=== PATIENT | male | born 1955 | race Caucasian/White ===

== ENCOUNTER → 2019-11-03 | Outpatient (CLI) | payer OTHER | LOC: HYPER 12:46 | DX: I83.228 Varicose veins of left lower extremity with both ulcer of other part of lower extremity and inflammation (principal); L97.821 Non-pressure chronic ulcer of other part of left lower leg limited to breakdown of skin; I83.222 Varicose veins of left lower extremity with both ulcer of calf and inflammation; L97.221 Non-pressure chronic ulcer of left calf limited to breakdown of skin; I83.218 Varicose veins of right lower extremity with both ulcer of other part of lower extremity and inflammation; L97.811 Non-pressure chronic ulcer of other part of right lower leg limited to breakdown of skin; L84 Corns and callosities; I89.0 Lymphedema, not elsewhere classified; I50.32 Chronic diastolic (congestive) heart failure; I48.0 Paroxysmal atrial fibrillation; J45.20 Mild intermittent asthma, uncomplicated; K76.6 Portal hypertension; K21.9 Gastro-esophageal reflux disease without esophagitis; G47.00 Insomnia, unspecified; R91.1 Solitary pulmonary nodule; M17.0 Bilateral primary osteoarthritis of knee; Z91.81 History of falling; Z90.49 Acquired absence of other specified parts of digestive tract; Z95.818 Presence of other cardiac implants and grafts; Z86.14 Personal history of Methicillin resistant Staphylococcus aureus infection ==

== ENCOUNTER → 2019-12-16 | Outpatient (CLI) | payer OTHER | LOC: HYPER 13:26 | DX: I83.011 Varicose veins of right lower extremity with ulcer of thigh (principal); L97.111 Non-pressure chronic ulcer of right thigh limited to breakdown of skin; I83.12 Varicose veins of left lower extremity with inflammation; I89.0 Lymphedema, not elsewhere classified; I48.0 Paroxysmal atrial fibrillation; I11.0 Hypertensive heart disease with heart failure; I50.32 Chronic diastolic (congestive) heart failure; M17.0 Bilateral primary osteoarthritis of knee; J45.20 Mild intermittent asthma, uncomplicated; G47.33 Obstructive sleep apnea (adult) (pediatric); Z86.14 Personal history of Methicillin resistant Staphylococcus aureus infection; Z90.49 Acquired absence of other specified parts of digestive tract ==

== ENCOUNTER → 2020-01-20 | Outpatient (CLI) | payer OTHER | LOC: HYPER 10:42 | DX: I83.011 Varicose veins of right lower extremity with ulcer of thigh (principal); L97.111 Non-pressure chronic ulcer of right thigh limited to breakdown of skin; L03.116 Cellulitis of left lower limb; L03.115 Cellulitis of right lower limb; I89.0 Lymphedema, not elsewhere classified; E66.01 Morbid (severe) obesity due to excess calories; R60.0 Localized edema; I50.32 Chronic diastolic (congestive) heart failure; I48.0 Paroxysmal atrial fibrillation; G47.33 Obstructive sleep apnea (adult) (pediatric); J45.20 Mild intermittent asthma, uncomplicated; K21.9 Gastro-esophageal reflux disease without esophagitis; K76.6 Portal hypertension; M17.10 Unilateral primary osteoarthritis, unspecified knee; Z68.42 Body mass index [BMI] 45.0-49.9, adult ==

== ENCOUNTER → 2020-02-03 | Outpatient (CLI) | payer OTHER | LOC: HYPER 09:59 | DX: L03.116 Cellulitis of left lower limb (principal); L03.115 Cellulitis of right lower limb; I83.011 Varicose veins of right lower extremity with ulcer of thigh; L97.101 Non-pressure chronic ulcer of unspecified thigh limited to breakdown of skin; I83.12 Varicose veins of left lower extremity with inflammation; L84 Corns and callosities; I89.0 Lymphedema, not elsewhere classified; I11.0 Hypertensive heart disease with heart failure; I50.32 Chronic diastolic (congestive) heart failure; I48.0 Paroxysmal atrial fibrillation; R60.0 Localized edema; E66.01 Morbid (severe) obesity due to excess calories; G47.33 Obstructive sleep apnea (adult) (pediatric); J45.20 Mild intermittent asthma, uncomplicated; K21.9 Gastro-esophageal reflux disease without esophagitis; M17.0 Bilateral primary osteoarthritis of knee; Z68.42 Body mass index [BMI] 45.0-49.9, adult ==

== ENCOUNTER → 2020-02-09 | Outpatient (CLI) | payer OTHER | LOC: HYPER 13:00 | DX: I83.011 Varicose veins of right lower extremity with ulcer of thigh (principal); L97.101 Non-pressure chronic ulcer of unspecified thigh limited to breakdown of skin; L03.115 Cellulitis of right lower limb; L84 Corns and callosities; I83.12 Varicose veins of left lower extremity with inflammation; I89.0 Lymphedema, not elsewhere classified; I48.0 Paroxysmal atrial fibrillation; I50.32 Chronic diastolic (congestive) heart failure; G47.33 Obstructive sleep apnea (adult) (pediatric); R60.0 Localized edema; J45.20 Mild intermittent asthma, uncomplicated; M17.0 Bilateral primary osteoarthritis of knee ==

== ENCOUNTER → 2020-04-15 | Outpatient (CLI) | payer OTHER | LOC: HYPER 13:56 | PROVIDERS: ATTEND Emergency Medicine | DX: I89.0 Lymphedema, not elsewhere classified (principal); I83.12 Varicose veins of left lower extremity with inflammation; I83.011 Varicose veins of right lower extremity with ulcer of thigh; L97.111 Non-pressure chronic ulcer of right thigh limited to breakdown of skin; R60.0 Localized edema; L30.9 Dermatitis, unspecified; R21 Rash and other nonspecific skin eruption; E66.01 Morbid (severe) obesity due to excess calories; I48.0 Paroxysmal atrial fibrillation; I50.32 Chronic diastolic (congestive) heart failure; G47.33 Obstructive sleep apnea (adult) (pediatric); J45.20 Mild intermittent asthma, uncomplicated; K21.9 Gastro-esophageal reflux disease without esophagitis; M17.0 Bilateral primary osteoarthritis of knee; Z95.818 Presence of other cardiac implants and grafts; Z68.42 Body mass index [BMI] 45.0-49.9, adult ==

== ENCOUNTER → 2020-05-27 | Outpatient (CLI) | payer OTHER | LOC: HYPER 12:46 | PROVIDERS: ATTEND Emergency Medicine | DX: I87.333 Chronic venous hypertension (idiopathic) with ulcer and inflammation of bilateral lower extremity (principal); L97.811 Non-pressure chronic ulcer of other part of right lower leg limited to breakdown of skin; L97.821 Non-pressure chronic ulcer of other part of left lower leg limited to breakdown of skin; R21 Rash and other nonspecific skin eruption; L30.9 Dermatitis, unspecified; I89.0 Lymphedema, not elsewhere classified; R60.0 Localized edema; E66.01 Morbid (severe) obesity due to excess calories; G47.33 Obstructive sleep apnea (adult) (pediatric); J45.20 Mild intermittent asthma, uncomplicated; I48.0 Paroxysmal atrial fibrillation; I11.0 Hypertensive heart disease with heart failure; I50.32 Chronic diastolic (congestive) heart failure; M17.0 Bilateral primary osteoarthritis of knee; K76.6 Portal hypertension; K21.9 Gastro-esophageal reflux disease without esophagitis; Z95.818 Presence of other cardiac implants and grafts; Z68.42 Body mass index [BMI] 45.0-49.9, adult ==

== ENCOUNTER → 2020-06-03 | Outpatient (CLI) | payer OTHER | LOC: HYPER 11:25 | PROVIDERS: ATTEND Emergency Medicine Emergency Medical Services | DX: I87.333 Chronic venous hypertension (idiopathic) with ulcer and inflammation of bilateral lower extremity (principal); L97.811 Non-pressure chronic ulcer of other part of right lower leg limited to breakdown of skin; L97.821 Non-pressure chronic ulcer of other part of left lower leg limited to breakdown of skin; R21 Rash and other nonspecific skin eruption; R60.0 Localized edema; L30.9 Dermatitis, unspecified; I89.0 Lymphedema, not elsewhere classified; I11.0 Hypertensive heart disease with heart failure; I50.32 Chronic diastolic (congestive) heart failure; I48.0 Paroxysmal atrial fibrillation; G47.33 Obstructive sleep apnea (adult) (pediatric); E66.01 Morbid (severe) obesity due to excess calories; J45.909 Unspecified asthma, uncomplicated; M17.0 Bilateral primary osteoarthritis of knee; K21.9 Gastro-esophageal reflux disease without esophagitis; Z85.818 Personal history of malignant neoplasm of other sites of lip, oral cavity, and pharynx; Z68.42 Body mass index [BMI] 45.0-49.9, adult ==

== ENCOUNTER → 2020-06-08 | Outpatient (CLI) | payer OTHER | LOC: HYPER 13:56 | PROVIDERS: ATTEND Emergency Medicine | DX: I87.333 Chronic venous hypertension (idiopathic) with ulcer and inflammation of bilateral lower extremity (principal); L97.811 Non-pressure chronic ulcer of other part of right lower leg limited to breakdown of skin; L97.821 Non-pressure chronic ulcer of other part of left lower leg limited to breakdown of skin; L30.9 Dermatitis, unspecified; R21 Rash and other nonspecific skin eruption; I89.0 Lymphedema, not elsewhere classified; R60.0 Localized edema; E66.01 Morbid (severe) obesity due to excess calories; G47.33 Obstructive sleep apnea (adult) (pediatric); I11.0 Hypertensive heart disease with heart failure; I48.0 Paroxysmal atrial fibrillation; J45.909 Unspecified asthma, uncomplicated; K21.9 Gastro-esophageal reflux disease without esophagitis; M17.0 Bilateral primary osteoarthritis of knee ==

== ENCOUNTER → 2020-06-16 | Outpatient (CLI) | payer OTHER | LOC: HYPER 13:27 | PROVIDERS: ATTEND Emergency Medicine | DX: I87.333 Chronic venous hypertension (idiopathic) with ulcer and inflammation of bilateral lower extremity (principal); L97.811 Non-pressure chronic ulcer of other part of right lower leg limited to breakdown of skin; L97.821 Non-pressure chronic ulcer of other part of left lower leg limited to breakdown of skin; L30.9 Dermatitis, unspecified; I48.0 Paroxysmal atrial fibrillation; I11.0 Hypertensive heart disease with heart failure; I50.32 Chronic diastolic (congestive) heart failure; I89.0 Lymphedema, not elsewhere classified; G47.33 Obstructive sleep apnea (adult) (pediatric); R60.0 Localized edema; R21 Rash and other nonspecific skin eruption; E66.01 Morbid (severe) obesity due to excess calories; M17.0 Bilateral primary osteoarthritis of knee; K21.9 Gastro-esophageal reflux disease without esophagitis; Z90.49 Acquired absence of other specified parts of digestive tract; Z68.42 Body mass index [BMI] 45.0-49.9, adult ==

== ENCOUNTER → 2020-06-25 | Outpatient (CLI) | payer OTHER | LOC: HYPER 10:49 | PROVIDERS: ATTEND Emergency Medicine | DX: I87.333 Chronic venous hypertension (idiopathic) with ulcer and inflammation of bilateral lower extremity (principal); L97.811 Non-pressure chronic ulcer of other part of right lower leg limited to breakdown of skin; L97.821 Non-pressure chronic ulcer of other part of left lower leg limited to breakdown of skin; L30.9 Dermatitis, unspecified; R21 Rash and other nonspecific skin eruption; I89.0 Lymphedema, not elsewhere classified; R60.0 Localized edema; E66.01 Morbid (severe) obesity due to excess calories; G47.33 Obstructive sleep apnea (adult) (pediatric); I48.0 Paroxysmal atrial fibrillation; I11.0 Hypertensive heart disease with heart failure; I50.32 Chronic diastolic (congestive) heart failure; J45.20 Mild intermittent asthma, uncomplicated; M17.0 Bilateral primary osteoarthritis of knee; K21.9 Gastro-esophageal reflux disease without esophagitis; Z90.49 Acquired absence of other specified parts of digestive tract; Z95.818 Presence of other cardiac implants and grafts; Z68.42 Body mass index [BMI] 45.0-49.9, adult ==

== ENCOUNTER → 2020-07-01 | Outpatient (CLI) | payer OTHER | LOC: HYPER 08:53 | PROVIDERS: ATTEND Emergency Medicine | DX: I87.333 Chronic venous hypertension (idiopathic) with ulcer and inflammation of bilateral lower extremity (principal); L97.811 Non-pressure chronic ulcer of other part of right lower leg limited to breakdown of skin; L97.821 Non-pressure chronic ulcer of other part of left lower leg limited to breakdown of skin; I89.0 Lymphedema, not elsewhere classified; R60.0 Localized edema; L30.9 Dermatitis, unspecified; R21 Rash and other nonspecific skin eruption; I48.0 Paroxysmal atrial fibrillation; J45.20 Mild intermittent asthma, uncomplicated; I11.0 Hypertensive heart disease with heart failure; I50.32 Chronic diastolic (congestive) heart failure; M17.0 Bilateral primary osteoarthritis of knee; G47.33 Obstructive sleep apnea (adult) (pediatric); Z86.14 Personal history of Methicillin resistant Staphylococcus aureus infection; Z90.49 Acquired absence of other specified parts of digestive tract ==

== ENCOUNTER → 2020-07-13 | Outpatient (CLI) | payer OTHER | LOC: HYPER 08:42 | PROVIDERS: ATTEND Emergency Medicine | DX: I87.333 Chronic venous hypertension (idiopathic) with ulcer and inflammation of bilateral lower extremity (principal); L97.822 Non-pressure chronic ulcer of other part of left lower leg with fat layer exposed; L97.812 Non-pressure chronic ulcer of other part of right lower leg with fat layer exposed; R21 Rash and other nonspecific skin eruption; I89.0 Lymphedema, not elsewhere classified; L30.9 Dermatitis, unspecified; R60.0 Localized edema; I48.0 Paroxysmal atrial fibrillation; I11.0 Hypertensive heart disease with heart failure; I50.32 Chronic diastolic (congestive) heart failure; E66.01 Morbid (severe) obesity due to excess calories; G47.33 Obstructive sleep apnea (adult) (pediatric); J45.20 Mild intermittent asthma, uncomplicated; K21.9 Gastro-esophageal reflux disease without esophagitis; M17.0 Bilateral primary osteoarthritis of knee; Z90.49 Acquired absence of other specified parts of digestive tract; Z95.818 Presence of other cardiac implants and grafts; Z68.42 Body mass index [BMI] 45.0-49.9, adult ==

== ENCOUNTER → 2020-07-27 | Outpatient (CLI) | payer OTHER | LOC: HYPER 14:15 | PROVIDERS: ATTEND Emergency Medicine | DX: I87.333 Chronic venous hypertension (idiopathic) with ulcer and inflammation of bilateral lower extremity (principal); L97.812 Non-pressure chronic ulcer of other part of right lower leg with fat layer exposed; L97.822 Non-pressure chronic ulcer of other part of left lower leg with fat layer exposed; I89.0 Lymphedema, not elsewhere classified; L30.9 Dermatitis, unspecified; R21 Rash and other nonspecific skin eruption; R60.0 Localized edema; N40.0 Benign prostatic hyperplasia without lower urinary tract symptoms; I48.0 Paroxysmal atrial fibrillation; J45.20 Mild intermittent asthma, uncomplicated; I11.0 Hypertensive heart disease with heart failure; I50.32 Chronic diastolic (congestive) heart failure; M17.0 Bilateral primary osteoarthritis of knee; G47.33 Obstructive sleep apnea (adult) (pediatric); Z86.14 Personal history of Methicillin resistant Staphylococcus aureus infection ==

== ENCOUNTER → 2020-08-03 | Outpatient (CLI) | payer OTHER | LOC: HYPER 13:08 | PROVIDERS: ATTEND Emergency Medicine | DX: I87.333 Chronic venous hypertension (idiopathic) with ulcer and inflammation of bilateral lower extremity (principal); L97.812 Non-pressure chronic ulcer of other part of right lower leg with fat layer exposed; L97.822 Non-pressure chronic ulcer of other part of left lower leg with fat layer exposed; L30.9 Dermatitis, unspecified; R21 Rash and other nonspecific skin eruption; I89.0 Lymphedema, not elsewhere classified; R60.0 Localized edema; I48.0 Paroxysmal atrial fibrillation; I50.32 Chronic diastolic (congestive) heart failure; G47.33 Obstructive sleep apnea (adult) (pediatric); E66.01 Morbid (severe) obesity due to excess calories; J45.20 Mild intermittent asthma, uncomplicated; K21.9 Gastro-esophageal reflux disease without esophagitis; M17.0 Bilateral primary osteoarthritis of knee; Z95.818 Presence of other cardiac implants and grafts; Z68.42 Body mass index [BMI] 45.0-49.9, adult ==

== ENCOUNTER → 2020-08-26 | Outpatient (CLI) | payer OTHER | LOC: HYPER 09:41 | PROVIDERS: ATTEND Emergency Medicine | DX: I87.333 Chronic venous hypertension (idiopathic) with ulcer and inflammation of bilateral lower extremity (principal); L97.822 Non-pressure chronic ulcer of other part of left lower leg with fat layer exposed; I89.0 Lymphedema, not elsewhere classified; L30.9 Dermatitis, unspecified; R60.0 Localized edema; R21 Rash and other nonspecific skin eruption; E66.01 Morbid (severe) obesity due to excess calories; I48.0 Paroxysmal atrial fibrillation; I11.0 Hypertensive heart disease with heart failure; I50.32 Chronic diastolic (congestive) heart failure; G47.33 Obstructive sleep apnea (adult) (pediatric); J45.20 Mild intermittent asthma, uncomplicated; K21.9 Gastro-esophageal reflux disease without esophagitis; M17.0 Bilateral primary osteoarthritis of knee; Z68.42 Body mass index [BMI] 45.0-49.9, adult ==

== ENCOUNTER → 2020-09-08 | Outpatient (CLI) | payer OTHER | LOC: HYPER 13:37 | PROVIDERS: ATTEND Emergency Medicine | DX: I87.333 Chronic venous hypertension (idiopathic) with ulcer and inflammation of bilateral lower extremity (principal); L97.822 Non-pressure chronic ulcer of other part of left lower leg with fat layer exposed; L97.812 Non-pressure chronic ulcer of other part of right lower leg with fat layer exposed; I89.0 Lymphedema, not elsewhere classified; L30.9 Dermatitis, unspecified; R60.0 Localized edema; R21 Rash and other nonspecific skin eruption; E66.01 Morbid (severe) obesity due to excess calories; I48.0 Paroxysmal atrial fibrillation; I11.0 Hypertensive heart disease with heart failure; I50.32 Chronic diastolic (congestive) heart failure; G47.33 Obstructive sleep apnea (adult) (pediatric); J45.20 Mild intermittent asthma, uncomplicated; K21.9 Gastro-esophageal reflux disease without esophagitis; M17.0 Bilateral primary osteoarthritis of knee; Z68.42 Body mass index [BMI] 45.0-49.9, adult ==

== ENCOUNTER → 2020-09-22 | Outpatient (CLI) | payer OTHER | LOC: HYPER 13:03 | PROVIDERS: ATTEND Emergency Medicine | DX: I87.332 Chronic venous hypertension (idiopathic) with ulcer and inflammation of left lower extremity (principal); L97.822 Non-pressure chronic ulcer of other part of left lower leg with fat layer exposed; I87.321 Chronic venous hypertension (idiopathic) with inflammation of right lower extremity; L30.9 Dermatitis, unspecified; R21 Rash and other nonspecific skin eruption; R60.0 Localized edema; I89.0 Lymphedema, not elsewhere classified; N40.0 Benign prostatic hyperplasia without lower urinary tract symptoms; I48.0 Paroxysmal atrial fibrillation; J45.20 Mild intermittent asthma, uncomplicated; I11.0 Hypertensive heart disease with heart failure; I50.32 Chronic diastolic (congestive) heart failure; M17.0 Bilateral primary osteoarthritis of knee; G47.33 Obstructive sleep apnea (adult) (pediatric); Z86.14 Personal history of Methicillin resistant Staphylococcus aureus infection; Z98.84 Bariatric surgery status; Z90.49 Acquired absence of other specified parts of digestive tract ==

== ENCOUNTER → 2020-09-28 | Outpatient (CLI) | payer OTHER | LOC: HYPER 13:37 | PROVIDERS: ATTEND Emergency Medicine | DX: I87.333 Chronic venous hypertension (idiopathic) with ulcer and inflammation of bilateral lower extremity (principal); L97.822 Non-pressure chronic ulcer of other part of left lower leg with fat layer exposed; L97.812 Non-pressure chronic ulcer of other part of right lower leg with fat layer exposed; L30.9 Dermatitis, unspecified; R21 Rash and other nonspecific skin eruption; R60.0 Localized edema; E66.01 Morbid (severe) obesity due to excess calories; G47.33 Obstructive sleep apnea (adult) (pediatric); I89.0 Lymphedema, not elsewhere classified; I48.0 Paroxysmal atrial fibrillation; I11.0 Hypertensive heart disease with heart failure; I50.32 Chronic diastolic (congestive) heart failure; N40.0 Benign prostatic hyperplasia without lower urinary tract symptoms; J45.20 Mild intermittent asthma, uncomplicated; M17.0 Bilateral primary osteoarthritis of knee; Z86.14 Personal history of Methicillin resistant Staphylococcus aureus infection; Z98.84 Bariatric surgery status; Z90.49 Acquired absence of other specified parts of digestive tract; Z68.42 Body mass index [BMI] 45.0-49.9, adult ==

== ENCOUNTER → 2020-11-24 | Outpatient (CLI) | payer OTHER | LOC: HYPER 13:46 | PROVIDERS: ATTEND Emergency Medicine | DX: I87.333 Chronic venous hypertension (idiopathic) with ulcer and inflammation of bilateral lower extremity (principal); L97.822 Non-pressure chronic ulcer of other part of left lower leg with fat layer exposed; L97.812 Non-pressure chronic ulcer of other part of right lower leg with fat layer exposed; L30.9 Dermatitis, unspecified; R21 Rash and other nonspecific skin eruption; R60.0 Localized edema; E66.01 Morbid (severe) obesity due to excess calories; G47.33 Obstructive sleep apnea (adult) (pediatric); I89.0 Lymphedema, not elsewhere classified; I48.0 Paroxysmal atrial fibrillation; I11.0 Hypertensive heart disease with heart failure; I50.32 Chronic diastolic (congestive) heart failure; N40.0 Benign prostatic hyperplasia without lower urinary tract symptoms; K21.9 Gastro-esophageal reflux disease without esophagitis; J45.20 Mild intermittent asthma, uncomplicated; M17.0 Bilateral primary osteoarthritis of knee; Z86.14 Personal history of Methicillin resistant Staphylococcus aureus infection; Z90.49 Acquired absence of other specified parts of digestive tract; Z68.42 Body mass index [BMI] 45.0-49.9, adult; Z95.818 Presence of other cardiac implants and grafts ==

== ENCOUNTER → 2020-12-14 | Outpatient (CLI) | payer OTHER | LOC: HYPER 13:08 | PROVIDERS: ATTEND Emergency Medicine | DX: I87.333 Chronic venous hypertension (idiopathic) with ulcer and inflammation of bilateral lower extremity (principal); L97.822 Non-pressure chronic ulcer of other part of left lower leg with fat layer exposed; L97.812 Non-pressure chronic ulcer of other part of right lower leg with fat layer exposed; L30.9 Dermatitis, unspecified; R21 Rash and other nonspecific skin eruption; R60.0 Localized edema; E66.01 Morbid (severe) obesity due to excess calories; G47.33 Obstructive sleep apnea (adult) (pediatric); I89.0 Lymphedema, not elsewhere classified; I48.0 Paroxysmal atrial fibrillation; I11.0 Hypertensive heart disease with heart failure; I50.32 Chronic diastolic (congestive) heart failure; N40.0 Benign prostatic hyperplasia without lower urinary tract symptoms; K21.9 Gastro-esophageal reflux disease without esophagitis; J45.20 Mild intermittent asthma, uncomplicated; M17.0 Bilateral primary osteoarthritis of knee; Z86.14 Personal history of Methicillin resistant Staphylococcus aureus infection; Z90.49 Acquired absence of other specified parts of digestive tract; Z68.42 Body mass index [BMI] 45.0-49.9, adult; Z95.818 Presence of other cardiac implants and grafts ==

== ENCOUNTER → 2020-12-30 | Outpatient (CLI) | payer OTHER | LOC: HYPER 10:41 | PROVIDERS: ATTEND Emergency Medicine | DX: I87.333 Chronic venous hypertension (idiopathic) with ulcer and inflammation of bilateral lower extremity (principal); L97.828 Non-pressure chronic ulcer of other part of left lower leg with other specified severity; L97.818 Non-pressure chronic ulcer of other part of right lower leg with other specified severity; L30.9 Dermatitis, unspecified; R21 Rash and other nonspecific skin eruption; R60.0 Localized edema; E66.01 Morbid (severe) obesity due to excess calories; G47.33 Obstructive sleep apnea (adult) (pediatric); I89.0 Lymphedema, not elsewhere classified; I48.0 Paroxysmal atrial fibrillation; I11.0 Hypertensive heart disease with heart failure; I50.32 Chronic diastolic (congestive) heart failure; N40.0 Benign prostatic hyperplasia without lower urinary tract symptoms; K21.9 Gastro-esophageal reflux disease without esophagitis; J45.20 Mild intermittent asthma, uncomplicated; M17.0 Bilateral primary osteoarthritis of knee; Z86.14 Personal history of Methicillin resistant Staphylococcus aureus infection; Z90.49 Acquired absence of other specified parts of digestive tract; Z68.42 Body mass index [BMI] 45.0-49.9, adult; Z95.818 Presence of other cardiac implants and grafts ==

== ENCOUNTER → 2021-01-20 | Outpatient (CLI) | payer OTHER | LOC: HYPER 13:06 | PROVIDERS: ATTEND Emergency Medicine | DX: I87.333 Chronic venous hypertension (idiopathic) with ulcer and inflammation of bilateral lower extremity (principal); L97.811 Non-pressure chronic ulcer of other part of right lower leg limited to breakdown of skin; L97.821 Non-pressure chronic ulcer of other part of left lower leg limited to breakdown of skin; L30.9 Dermatitis, unspecified; R21 Rash and other nonspecific skin eruption; R60.0 Localized edema; E66.01 Morbid (severe) obesity due to excess calories; G47.33 Obstructive sleep apnea (adult) (pediatric); I89.0 Lymphedema, not elsewhere classified; I48.0 Paroxysmal atrial fibrillation; I11.0 Hypertensive heart disease with heart failure; I50.32 Chronic diastolic (congestive) heart failure; N40.0 Benign prostatic hyperplasia without lower urinary tract symptoms; K21.9 Gastro-esophageal reflux disease without esophagitis; J45.20 Mild intermittent asthma, uncomplicated; M17.0 Bilateral primary osteoarthritis of knee; Z86.14 Personal history of Methicillin resistant Staphylococcus aureus infection; Z90.49 Acquired absence of other specified parts of digestive tract; Z68.42 Body mass index [BMI] 45.0-49.9, adult; Z95.818 Presence of other cardiac implants and grafts ==

== ENCOUNTER → 2021-02-03 | Outpatient (CLI) | payer OTHER | LOC: HYPER 13:27 | PROVIDERS: ATTEND Emergency Medicine | DX: I87.331 Chronic venous hypertension (idiopathic) with ulcer and inflammation of right lower extremity (principal); L97.811 Non-pressure chronic ulcer of other part of right lower leg limited to breakdown of skin; B95.62 Methicillin resistant Staphylococcus aureus infection as the cause of diseases classified elsewhere; I87.322 Chronic venous hypertension (idiopathic) with inflammation of left lower extremity; R60.0 Localized edema; L30.9 Dermatitis, unspecified; R21 Rash and other nonspecific skin eruption; N40.0 Benign prostatic hyperplasia without lower urinary tract symptoms; I11.0 Hypertensive heart disease with heart failure; I50.32 Chronic diastolic (congestive) heart failure; I48.0 Paroxysmal atrial fibrillation; J45.20 Mild intermittent asthma, uncomplicated; K76.6 Portal hypertension; G47.33 Obstructive sleep apnea (adult) (pediatric); M17.0 Bilateral primary osteoarthritis of knee; E66.9 Obesity, unspecified; Z68.42 Body mass index [BMI] 45.0-49.9, adult; Z79.899 Other long term (current) drug therapy; Z98.84 Bariatric surgery status; Z90.49 Acquired absence of other specified parts of digestive tract ==

== ENCOUNTER → 2021-03-10 | Outpatient (CLI) | payer OTHER | LOC: HYPER 07:59 | PROVIDERS: ATTEND Emergency Medicine | DX: I87.333 Chronic venous hypertension (idiopathic) with ulcer and inflammation of bilateral lower extremity (principal); L97.811 Non-pressure chronic ulcer of other part of right lower leg limited to breakdown of skin; L97.821 Non-pressure chronic ulcer of other part of left lower leg limited to breakdown of skin; B95.62 Methicillin resistant Staphylococcus aureus infection as the cause of diseases classified elsewhere; I89.0 Lymphedema, not elsewhere classified; R60.0 Localized edema; L30.9 Dermatitis, unspecified; R21 Rash and other nonspecific skin eruption; E66.9 Obesity, unspecified; N40.0 Benign prostatic hyperplasia without lower urinary tract symptoms; I11.0 Hypertensive heart disease with heart failure; I50.32 Chronic diastolic (congestive) heart failure; I48.0 Paroxysmal atrial fibrillation; J45.20 Mild intermittent asthma, uncomplicated; G47.33 Obstructive sleep apnea (adult) (pediatric); K76.6 Portal hypertension; K21.9 Gastro-esophageal reflux disease without esophagitis; M17.0 Bilateral primary osteoarthritis of knee; Z68.42 Body mass index [BMI] 45.0-49.9, adult; Z98.84 Bariatric surgery status; Z90.49 Acquired absence of other specified parts of digestive tract; Z95.818 Presence of other cardiac implants and grafts ==

== ENCOUNTER → 2021-04-14 | Outpatient (CLI) | payer OTHER | LOC: HYPER 08:44 | PROVIDERS: ATTEND Emergency Medicine | DX: I87.333 Chronic venous hypertension (idiopathic) with ulcer and inflammation of bilateral lower extremity (principal); L97.811 Non-pressure chronic ulcer of other part of right lower leg limited to breakdown of skin; L97.821 Non-pressure chronic ulcer of other part of left lower leg limited to breakdown of skin; B95.62 Methicillin resistant Staphylococcus aureus infection as the cause of diseases classified elsewhere; I89.0 Lymphedema, not elsewhere classified; R60.0 Localized edema; L30.9 Dermatitis, unspecified; R21 Rash and other nonspecific skin eruption; E66.9 Obesity, unspecified; N40.0 Benign prostatic hyperplasia without lower urinary tract symptoms; I11.0 Hypertensive heart disease with heart failure; I50.32 Chronic diastolic (congestive) heart failure; I48.0 Paroxysmal atrial fibrillation; J45.20 Mild intermittent asthma, uncomplicated; G47.33 Obstructive sleep apnea (adult) (pediatric); K76.6 Portal hypertension; K21.9 Gastro-esophageal reflux disease without esophagitis; M17.0 Bilateral primary osteoarthritis of knee; Z68.42 Body mass index [BMI] 45.0-49.9, adult; Z98.84 Bariatric surgery status; Z90.49 Acquired absence of other specified parts of digestive tract; Z95.818 Presence of other cardiac implants and grafts ==

== ENCOUNTER → 2021-05-05 | Outpatient (CLI) | payer OTHER | LOC: HYPER 07:55 | PROVIDERS: ATTEND Emergency Medicine | DX: I87.333 Chronic venous hypertension (idiopathic) with ulcer and inflammation of bilateral lower extremity (principal); L97.811 Non-pressure chronic ulcer of other part of right lower leg limited to breakdown of skin; L97.821 Non-pressure chronic ulcer of other part of left lower leg limited to breakdown of skin; B95.62 Methicillin resistant Staphylococcus aureus infection as the cause of diseases classified elsewhere; I89.0 Lymphedema, not elsewhere classified; R60.0 Localized edema; L30.9 Dermatitis, unspecified; R21 Rash and other nonspecific skin eruption; E66.01 Morbid (severe) obesity due to excess calories; N40.0 Benign prostatic hyperplasia without lower urinary tract symptoms; I11.0 Hypertensive heart disease with heart failure; I50.32 Chronic diastolic (congestive) heart failure; I48.0 Paroxysmal atrial fibrillation; J45.20 Mild intermittent asthma, uncomplicated; G47.33 Obstructive sleep apnea (adult) (pediatric); K76.6 Portal hypertension; K21.9 Gastro-esophageal reflux disease without esophagitis; M17.0 Bilateral primary osteoarthritis of knee; Z68.42 Body mass index [BMI] 45.0-49.9, adult; Z98.84 Bariatric surgery status; Z90.49 Acquired absence of other specified parts of digestive tract; Z95.818 Presence of other cardiac implants and grafts ==

== ENCOUNTER 2021-05-26 14:33 | Inpatient (IN) | payer OTHER ==
[~2021-05-26] VITALS: Ht 185.4 cm; Wt 162.4 kg
[2021-05-26 14:36] VITALS: BP 143/55
[2021-05-26 16:26] LABS: URINE BILIRUBIN NEGATIVE (Negative); URINE BLOOD NEGATIVE (Negative); URINE CLARITY CLEAR; URINE COLOR YELLOW; URINE GLUCOSE-RANDOM* NEGATIVE (Negative); URINE KETONES NEGATIVE (Negative); URINE LEUKOCYTES-REFLEX TRACE (Negative); URINE NITRITE-REFLEX NEGATIVE (Negative); URINE PROTEIN (DIPSTICK) NEGATIVE (Negative); URINE SPECIFIC GRAVITY 1.025 (1.005-1.035)
[2021-05-26 16:26] LABS: ABSOLUTE NEUTROPHILS 2.7 thou/uL (1.4-8.2); BASOPHILS 0.6 % (0.0-2.0); EOSINOPHILS 2.1 % (0.0-3.0); HEMATOCRIT 26.7 % (42.0-52.0); HEMOGLOBIN 8.7 gm/dL (14.0-18.0); LYMPHOCYTES 16.4 % (24.0-44.0); MCH 27.3 pg (26.0-34.0); MCHC 32.8 g/dL (28.0-37.0); MCV 83.2 fL (80.0-100.0); MONOCYTES 13.5 % (1.0-8.0); PLATELET COUNT 199 thou/uL (150-400); POLYS 67.4 % (36.0-66.0); RBC 3.21 mil/uL (4.50-6.00); RDW 19.4 % (10.5-14.5)
[2021-05-26 16:35] LABS: CALCIUM 8.6 mg/dL (8.5-10.1); CREATININE 0.8 mg/dL (0.7-1.3)
[2021-05-26] MEDS ORDERED: OXYCODONE HCL E30 MG PO ×2 (16:36→16:42)
[2021-05-26] MEDS ORDERED: OXYCODONE HCL E20 MG PO (16:37)
[2021-05-26] MEDS ORDERED: FENTANYL1 EAC1 TOP (16:39)
[2021-05-26 16:40] LABS: TOTAL BILIRUBIN 0.4 mg/dL (0.2-1.0); TOTAL PROTEIN 6.2 g/dL (6.4-8.2)
[2021-05-26] MEDS ORDERED: VESICARE10 M1 PO (16:40)
[2021-05-26] MEDS ORDERED: SYNTHROID50 MCG PO (16:40)
[2021-05-26] MEDS ORDERED: MINOCYCLINE HC100 M2 PO (16:42)
[2021-05-26] MEDS ORDERED: ALBUTEROL2.5 MG/0.1 INH (16:42)
[2021-05-26] MEDS ORDERED: NEXIUM40 M2 PO (16:43)
[2021-05-26] MEDS ORDERED: FLOMAX0.4 MG PO (16:43)
[2021-05-26] MEDS ORDERED: DUTASTERIDE0.5 MG PO (16:43)
[2021-05-26] MEDS ORDERED: BUTALB-APAP-CA1 EACH PO (16:44)
[2021-05-26] MEDS ORDERED: ZOFRAN ODT4 MG PO (16:44)
[2021-05-26] MEDS ORDERED: FUROSEMIDE 40 M40 MG PO (16:44)
[2021-05-26] MEDS ORDERED: KLOR-CON M2020 MEQ PO (16:44)
[2021-05-26] MEDS ORDERED: NEURONTIN100 MG PO (16:45)
[2021-05-26] MEDS ORDERED: SPIRONOLACTONE50 MG PO (16:45)
[2021-05-26] MEDS ORDERED: FLONASE 0.05%50 MCG NARES (16:45)
[2021-05-26 16:51] VITALS: BP 123/61
[2021-05-26 17:29] VITALS: BP 123/50
[2021-05-26] MEDS ORDERED: LIPITOR40 MG PO (17:31)
[2021-05-26] MEDS ORDERED: PACERONE200 MG PO (17:31)
[2021-05-26] MEDS ORDERED: MYRBETRIQ25 MG PO (17:32)
[2021-05-26 19:27] VITALS: BP 152/66
[2021-05-26 20:09] LABS: ALBUMIN 3.1 g/dL (3.4-5.0); TOTAL PROTEIN 6.3 g/dL (6.4-8.2)
[2021-05-27] MEDS ORDERED: MIRALAX119 GM PO (00:29)
[2021-05-27] MEDS ORDERED: MAG GLYCINATE100 MG PO (00:31)
[2021-05-27] MEDS ORDERED: MULTIVITAMINS1 EAC6 PO (00:34)
[2021-05-27] MEDS ORDERED: COLACE100 MG PO (00:36)
--- NOTE | 2021-05-27 04:25 | NUR ---
Pt admitted at shift change with Cellulitis to BLE.A/OX4,VSS. C/o pain to BLE/Headache medicated per EMAR with relief reported. Up with SBA/cane,fall safety education reinforced;verbalizes understanding and agrees to call for help. Fall precautions implemented. Cellulitis noted on BLE,red,warm and tender to touch.Some open areas especially on LLE,cleansed and wrapped with kerlix. Excoriation also noted on left abd fold,yeasty smell,clenased and interdry fabric applied. Pt has a right chest port-a-cath,patent and drawing blood. Resting w/o any distress,CPAP from home in place. Pt brought some home meds,sent to pharmacy. Has $355,2 credits/2 debit cards sent down to security. Will continue to monitor pt.
[2021-05-27 05:43] LABS: HEMATOCRIT 25.1 % (42.0-52.0); HEMOGLOBIN 8.2 gm/dL (14.0-18.0); MCHC 32.6 g/dL (28.0-37.0); MCV 82.7 fL (80.0-100.0); RBC 3.04 mil/uL (4.50-6.00); RDW 19.2 % (10.5-14.5); WBC 4.4 thou/uL (4.0-11.0)
[2021-05-27 06:26] LABS: CALCIUM 8.1 mg/dL (8.5-10.1); CREATININE 0.9 mg/dL (0.7-1.3); MAGNESIUM 1.9 mg/dL (1.8-2.4); POTASSIUM 4.1 mmol/L (3.5-5.1)
--- NOTE | 2021-05-27 08:44 | NUR ---
Assess due to pt with lower extremity cellulitis, open ulcerations. Class III obesity/BMI 54.2. Also volume overload and on diuretics-on heart healthy diet order. Tolerating. Add carlos bid to trays. Otherwise low nutrition risk with appropriate nutrition interventions in place.
[2021-05-27 11:02] VITALS: BP 115/52
--- NOTE | 2021-05-27 11:06 | NUR ---
Patient likes to be called "Julius". A/O x 4. Room air. He wears a CPAP @ [facility]. Uses cane for transfers with one assist. Miller-patent, urine yellow, no sediment noted, Right chest port a cath, flushes well, dressing dry, clean and intact, bilateral leg 4+ edema, bilateral legs discolored a blue to riley color, not a bruise, per patient its an ink stain from iron infusions every sunday at cancer clinic, bilateral legs are wrapped with rayne wrap and bernadette, has chronic leg pain, oxycodone 30 mg given at 1100,
--- NOTE | 2021-05-27 11:53 | NUR ---
PT ADMITTED RELATED TO CELLULITIS. CM REVIEWED CHART AND SPOKE WITH CARE TEAM. CM MET [facility] PT AT BEDSIDE THIS DAY. PT APPEARED TO BE A&O X4. CM ROLE INTRODUCED. PT INDICATED THAT HE HAD BEEN LIVING IN A TRIPLEX WITH HIS OLDEST SON PAXOTN MOTT. HE INDICATED 1 STEP TO ENTER AND NO STEPS INSIDE. PT INDICATED HE HAD BEEN USING A QUAD CANE, FWW, AND WC TO ASSIST WITH MOBILITY MISSION COORDINATOR. PT INDICATED HE HAS A CPAP THROUGH [facility]. PT INDICATED HE HAD BEEN ON SERVICE WITH [facility] MISSION COORDINATOR FOR , NURSE RAFAEL AND HE HOPES TO RETURN HOME ONCE MEDICALLY STABLE AND RESUME SERVICES WITH THEM. PT'S PCP IS DR. ELIE JUAREZ. CM FOLLOWING REGARDING DC NEEDS. CARE TEAM INDICATED THAT PT WILL LIKELY BE HERE OVER THE WEEKEND.
[2021-05-27 20:37] VITALS: BP 133/76
--- NOTE | 2021-05-28 07:48 | NUR ---
patient aox4 makes needs known.patient hypertalkative. patient has cellulitis on ble, dressing ar c/d/i. fall precaution in place. patient in bed asleep at this time breathing regular and unlaboured.
[2021-05-28 08:02] LABS: HEMATOCRIT 27.7 % (42.0-52.0); MCHC 32.6 g/dL (28.0-37.0); MCV 82.8 fL (80.0-100.0); RBC 3.35 mil/uL (4.50-6.00); RDW 19.1 % (10.5-14.5); WBC 3.9 thou/uL (4.0-11.0)
[2021-05-28 08:15] LABS: CALCIUM 8.3 mg/dL (8.5-10.1); CREATININE 1.1 mg/dL (0.7-1.3); MAGNESIUM 1.8 mg/dL (1.8-2.4); POTASSIUM 3.5 mmol/L (3.5-5.1)
[2021-05-28 08:52] VITALS: BP 126/47
[2021-05-28 15:20] VITALS: BP 139/80
--- NOTE | 2021-05-28 18:07 | NUR ---
Patient has had bilateral leg dressings changed and morphine cream appiled. Tolerated IV ABTs well. At the start of shift patient said to nurse that someone on laborer bituminous paving told him that their short on staff in the hospital. The day nurse responded by saying staff should not discuss staffing with you and that sheshould would not, he understood. Later around 1600 nurse came into patients room and he said I see why the laborer bituminous paving said its short staffed, and started to say no ones been in his room. The started cursing at nurse "Im going to call my fucking son to take me out of this [facility]" nurse and tech had been in multi times throughout day and not once did he mention fentanyl patches on his knees needing to be changed to nurse. At 1600 the tech came and told the nurse that the patients upset in his room about fentanyl patches, nurse went in room and that when he started cursing and not liking the care he was getting. The nurse said after being cursed at, " This is the first time you mentioned your Fentanyl patches to me, I just have to call Dr. Carrillo to get the order changed", patient then said " come here" nurse said "no" he said "come here so I can apologize to you" nurse was only 5 feet away at the computer in his room, she said "no I dont have to come any closer for that" Dr. Carrillo called and notified and he said to change to fentanyl patches to today and nurse notified pharmacy. Nurse told Charge nurse NATY about the situation and asked not to have patient tomorrow due to being cursed at and him making the nurse feel very uncomfartable.
[2021-05-28 20:49] VITALS: BP 103/42
--- NOTE | 2021-05-29 04:30 | HC ---
[facility] [place] [address] CONSULTATION Name: CARMELA ORELLANA Room #: 463-P ADM IN M.R.#: [id number] Admission: 05/26/21 Attend Phys: Andi Leong MD Discharge: Date of : 57 Report #: [id number] THIS REPORT FOR: cc: Eugene Vizcaino,Kurt Young MD ~ DATE OF SERVICE: 05/28/2021 INFECTIOUS DISEASE CONSULTATION ATTENDING PHYSICIAN: Dr. Leong. REASON FOR CONSULTATION: Bilateral lower extremity inflammatory eruptions likely multifactorial including component of skin and soft tissue infection with cellulitis. Previous cultures as an outpatient with multiple resistant pseudomonas including carbapenem resistance, although in vitro susceptible to Zosyn. HISTORY OF PRESENT ILLNESS: Chart reviewed, the patient examined. This is a 66-year-old gentleman with longstanding history of venous stasis insufficiency that has been complicated by dermatitis and ulcers, he dates at least 10 years. Also, has a component of lymphedema, I believe, who has been followed with wound care center over the course of last several days, had increasing pain associated in particular with the left lower extremity, bloody purulent drainage. This was cultured as an outpatient and as noted above grew Pseudomonas. Due to concerns about worsening situation he was admitted in anticipation of parenteral antibiotics. Initial studies: Chest x-ray showed cardiomegaly and mild CHF. He does have a chronic anemia, hemoglobin 9.7. Urinalysis was unremarkable. Lactic acid 0.6. Coronavirus testing was negative. Procalcitonin less than 0.05. Blood cultures collected at the time of admission are sterile thus far. He has not been aware of any fevers or chills. Appetite has been satisfactory. He states he is on the Atkins diet now. No pulmonary related complaints other than his baseline. He was empirically started on therapy with the Zosyn, which he apparently is tolerating. ALLERGIES: DOXYCYCLINE, NEOMYCIN, AMOXICILLIN THAT APPARENTLY CAUSES URTICARIA, ALTHOUGH HE IS TOLERATING ZOSYN, OXYBUTYNIN, LEVOFLOXACIN. CURRENT MEDICATIONS: Include morphine topically, atorvastatin, fluconazole, spironolactone, dutasteride, tamsulosin, furosemide, levothyroxine, gabapentin, Zosyn, amiodarone, p.r.n. analgesics, antiemetics, albuterol. PAST MEDICAL HISTORY: As described above, history of asthma, obstructive sleep apnea, reflux, chronic pain syndrome, hypothyroidism, history of gastrointestinal hemorrhage, chronic anemia, receives intermittent transfusions as well as iron administration parenterally, previous history of gastric sleeve, [address] [address] CONSULTATION Name: CARMELA ORELLANA Room #: 463-P [facility] IN M.R.#: [id number] Admission: 05/26/21 Attend Phys: Andi Leong MD Discharge: Date of : 57 Report #: [id number] atrial fibrillation. SOCIAL HISTORY: Nonsmoker, no ethanol, no illicit drug use. FAMILY HISTORY: Noncontributory. REVIEW OF SYSTEMS: Otherwise, unremarkable. PHYSICAL EXAMINATION: GENERAL: He is alert, cooperative, mild to moderate distress. VITAL SIGNS: Temperature is 97.7, pulse 70, respirations 20, blood pressure 133/76. SKIN: Warm, dry. HEENT: Normocephalic. Extraocular muscles intact. NECK: Supple. LUNGS: Diminished breath sounds. Few scattered crackles at the bases. HEART: Distant, irregular. I do not appreciate a murmur. ABDOMEN: Obese. EXTREMITIES: Bilateral lower extremities were evaluated. He has pretty profound dermopathy secondary to venous stasis insufficiency with dermatitis, there are some superficial essentially circumferential wounds on the mid pretibial sites that are quite tender in particular on the left, fairly clean; there is no overt odor or purulence. There is a moderate degree of inflammatory changes noted. GENITOURINARY AND RECTAL: Deferred. LABORATORY DATA: Electrolytes: Sodium 141, potassium 3 5, chloride 103, bicarbonate is 34, anion gap of 4, BUN and creatinine 19 and 1.1, glucose 93. Estimated GFR of 67. CBC: White count 3.9, H and H 9.0 and 27.7, platelets of 235. Blood cultures sterile thus far. TSH of 0.008, it is quite low. Coronavirus testing was negative. Lactic acid of 0.6. Liver function tests were unremarkable. Urinalysis was unremarkable as well. ASSESSMENT AND PLAN: Bilateral lower extremity inflammatory eruption, likely multifactorial including a component of skin and soft tissue infection, in particular on the left with isolation of multiple resistant organism. Based on that he has been started on Zosyn. No evident hypersensitivity evidence at this point, we will continue that. Wound care as prescribed by wound care team. Continue elevation. Certainly he will benefit from compression when he is able to tolerate. Discussed with Dr. Yun. He has not been previously [facility] [address] [place] [address] CONSULTATION Name: CARMELA ORELLANA Room #: 463-P ADM IN M.R.#: [id number] Admission: 05/26/21 Attend Phys: Andi Leong MD Discharge: Date of : 57 Report #: [id number] hospitalized here, I do not know if he has recent Doppler studies. We will follow. <ELECTRONICALLY SIGNED> By: Kurt Neville MD 05/29/21 0430 [id number] Kurt Neville MD /nt
[2021-05-29 05:57] LABS: HEMATOCRIT 29.2 % (42.0-52.0); HEMOGLOBIN 9.6 gm/dL (14.0-18.0); MCH 27.3 pg (26.0-34.0); MCV 82.6 fL (80.0-100.0); RBC 3.53 mil/uL (4.50-6.00); RDW 18.8 % (10.5-14.5); WBC 4.7 thou/uL (4.0-11.0)
[2021-05-29 06:19] LABS: CALCIUM 8.3 mg/dL (8.5-10.1); MAGNESIUM 1.8 mg/dL (1.8-2.4); POTASSIUM 3.4 mmol/L (3.5-5.1)
--- NOTE | 2021-05-29 07:33 | NUR ---
patient ble dressings are c/d/i. patient refused dressing change to ble. patient uses c pap at night. fall precaution in place. patient in bed asleep at this time breathing regular and unlaboured.
[2021-05-29 08:00] VITALS: BP 117/60
[2021-05-29 16:00] VITALS: BP 115/56
--- NOTE | 2021-05-29 16:40 | NUR ---
Assumed pt care at 7am.Pt in bed sleeping with cpap and o2 on at the start of shift.Finally woke up around 9am for breakfast.Assessment completed.vss.Pt c/o back and both knees pain rated 10/10.Dr Leong notified and order noted. Pt got out of bed later this afternoon to use bathroom.Has bm x1.Pain patch applied to both knees with relief.Pt in bed at present sleeping with cpap on. Will continue to monitor.
[2021-05-29 19:46] VITALS: BP 121/63
--- NOTE | 2021-05-30 03:12 | NUR ---
PT CARE ASSUMED WITH PT IN BED SLEEPING WITH CPAP ON.PT IS A/O X4.PT IS UP WITH X1 ASSIST TO BATHROOM WITH CANE AND GAIT BELT.PT C/O BACK PAIN AND LEG PAIN AND PAIN MANAGED WITH OXYCODONE.WOUND DRESSING DONE.IV ACCESS RT CHEST PORT SL.PT HAS NUNEZ CATHETER IN PLACE.FENTANYL PATCH ON BOTH KNEES IN PLACE AND LIDOCAINE PATCH ON BACK .WILL CONTINUE TO MONITOR
[2021-05-30 09:24] LABS: HEMATOCRIT 32.5 % (42.0-52.0); HEMOGLOBIN 10.5 gm/dL (14.0-18.0); MCH 26.8 pg (26.0-34.0); MCHC 32.2 g/dL (28.0-37.0); MCV 83.1 fL (80.0-100.0); RBC 3.91 mil/uL (4.50-6.00); RDW 18.7 % (10.5-14.5); WBC 5.7 thou/uL (4.0-11.0)
[2021-05-30 09:38] LABS: CALCIUM 9.1 mg/dL (8.5-10.1); CREATININE 1.2 mg/dL (0.7-1.3); MAGNESIUM 1.8 mg/dL (1.8-2.4); POTASSIUM 3.3 mmol/L (3.5-5.1)
--- NOTE | 2021-05-30 14:23 | NUR ---
WOUND CARE CONSULT; ROUNDING WITH DR DAMICO AND NUVIA CARBAJAL NP. THIS WAS MY FIRST ASSESSMENT OF THIS KNOW PATIENT OF DR DAMICO. THE PATIENTS BILATERAL LOWER EXT'S WERE ASSESSED. MILD TO MODERATE ERYTHEMA AT BEST. THE PATIENT HAS DRUG SEEKING TENDANCIES. THE PATIENT HAS SHOWN NO S/S OF ANY PAIN RESPONSES. CURRENTLY THE PATIENT IS USING SILVADINE/MORPHINE CREAM, XEROFORM, ABD, KERLIX.
--- NOTE | 2021-05-30 16:47 | NUR ---
VAT NOTED THAT PT PORT FLUSHED, BUT NO BLOOD RETURN, EARLY AM. AT 1435, NOTIFIED THAT ALTEPLASE AVAIL FROM PHARMACY. PORT DRESSING LIFTING AT BOTTOM, SO PORT DE AND RE-ACCESSED, DOCUMENTED. STILL NO BLOOD RETURN. ALTEPLASE 2MG/2.2 ML STERILE WATER. EDUCATED JANET FERRER TO CHECK FOR RETURN IN 1 HOUR, WASTE 5ML THEN FLUSH WITH 10ML NS.
--- NOTE | 2021-05-30 16:58 | NUR ---
PT CONTINUES ON ZOSYN LOOKS LIKE THEY ARE RECOMMENDING 14 DAYS TOTAL WITH 10 MORE DAYS OF TREATMENT. CM CALLED AND SPOKE [facility] OUT OF [place] FAX ([phone]. THEY ARE FOLLOWING AND ABLE TO ACCEPT PT BACK ON SERVICES UPON DC.
--- NOTE | 2021-05-30 20:01 | NUR ---
Assumed pt care at 7am.Pt in and out of bed with cane.Assessment completed. vss.Pt c/o back and knees pain.Lidocaine patch applied to back but pt requested for additional ,Dr Jacques notified.Order noted.Drsg change done to bilat.lower extremities by wound care.Pt has over 4liter of urine today and reduction in weight by 6#.Resting in bed with cpap on at present.Will continue to monitor.
[2021-05-30 20:30] VITALS: BP 155/56
--- NOTE | 2021-05-31 02:48 | NUR ---
PT CARE ASSUMED WITH PT IN BED WITH CPAP ON SLEEPING.PT IS A/O X4.PT IS UP WITH X1 ASSIST TO BATHROOM.PT HAS A NUNEZ CATHETER IN PLACE .IV ACCESS RT CHEST PORT.DRESSING ON BLE I/C/D.PT C/O PAIN AND PAIN MANAGED WITH OXYCODONE PRN AND ALSO HEADACHE WITH TYLENOL PRN PT USES CPAP TO SLEEP AND AT NIGHT WITH 3L OF O2.WILL CONTINUE TO MONITOR
[2021-05-31 05:58] LABS: HEMATOCRIT 30.9 % (42.0-52.0); MCH 26.6 pg (26.0-34.0); MCHC 32.4 g/dL (28.0-37.0); MCV 82.1 fL (80.0-100.0); RBC 3.76 mil/uL (4.50-6.00); RDW 18.5 % (10.5-14.5); WBC 5.3 thou/uL (4.0-11.0)
[2021-05-31 06:10] LABS: CALCIUM 8.7 mg/dL (8.5-10.1); CREATININE 1.1 mg/dL (0.7-1.3); POTASSIUM 3.7 mmol/L (3.5-5.1)
[2021-05-31 07:50] VITALS: BP 144/79
--- NOTE | 2021-05-31 09:14 | NUR ---
BPCI letter and preferred provider list provided to patient, lives in home setting
--- NOTE | 2021-05-31 10:47 | NUR ---
WOUND CONSULT; ROUNDING WITH DR RUFINO DAMICO AND NUVIA CARBAJAL RAT POISONER. THE BLE LOWER EXTREMITY WOUNDS LOOK MORE ANGRY TODAY. MILD WARMTH TO THE AFFECTED AREAS. NON ODOROUS. RECCOMMENDATIONS; CONT CURRENT POC.
--- NOTE | 2021-05-31 12:20 | HC ---
[facility] [address] [address] CONSULTATION Name: CARMELA ORELLANA Room #: 463-P ADM IN M.R.#: [id number] Admission: 05/26/21 Attend Phys: Andi Leong MD Discharge: Date of : 57 Report #: [id number] THIS REPORT FOR: cc: Eugene Vizcaino,Napoleon Patterson MD ~ DATE OF SERVICE: 05/27/2021 WOUND CARE CONSULTATION PERSONAL PHYSICIAN: Dr. Eugene Vizcaino CHIEF COMPLAINT: Lower extremity cellulitis and fluid overload. HISTORY OF PRESENT ILLNESS: This is a 66-year-old white male who I have been following in the wound clinic for several months for chronic venous insufficiency with associated lymphedema. The patient states in the past week, he has noted increased amount of erythema, warmth, and drainage. The patient was seen in the wound clinic and felt that the patient had bilateral cellulitis with significant fluid overload and was admitted to the hospital. The patient also had a carbapenem resistant pseudomonas growing out from his last wound culture. PAST MEDICAL HISTORY: Significant for chronic bilateral lower extremity lymphedema with associated recurrent ulcerations, left leg greater than right; asthma; obstructive sleep apnea; gastroesophageal reflux disease; morbid obesity; hyperlipidemia; chronic pain. CURRENT MEDICATIONS: Multiple, I reviewed the patient's medication list. DRUG ALLERGIES: DOXYCYCLINE, AMOXICILLIN, OXYBUTYNIN, NEOMYCIN. SOCIAL HISTORY: The patient does not smoke or drink alcohol. FAMILY HISTORY: Not pertinent to current medical condition. REVIEW OF SYSTEMS: CONSTITUTIONAL: The patient denies actual fevers or chills. NEUROLOGIC: The patient complains of overall generalized weakness, but no isolated weakness in arms or legs. EYES: No complaints. EARS, NOSE AND THROAT: No complaints. CARDIAC: The patient has chronic lower extremity edema, but no palpitations or chest pain. RESPIRATORY: The patient complains of mild shortness of breath with dyspnea on exertion, but denies cough or wheezes. [facility] [address] [place] [address] CONSULTATION Name: CARMELA ORELLANA Room #: 463-P ADM IN M.R.#: [id number] Admission: 05/26/21 Attend Phys: Andi Leong MD Discharge: Date of : 57 Report #: [id number] GASTROINTESTINAL: The patient denies nausea, vomiting, abdominal pain. GENITOURINARY: The patient denies urgency or frequency. MUSCULOSKELETAL: No complaints. SKIN: The patient has chronic stasis dermatitis with open ulcerations on bilateral lower extremities, left greater than right with increased erythema, warmth and tenderness. Also a copious amount of drainage noted from bilateral lower extremities, left greater than right. There is no significant odor. NEUROLOGIC: Cranial nerves II-XII grossly intact. Motor and sensory grossly intact. LABORATORY VALUES: White count 4.4, hemoglobin 8.2, BUN 16, creatinine 1.2, albumin 3.1. IMPRESSION: 1. 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 2. Bilateral lower extremity lymphedema with open ulcerations, left greater than right. 3. Morbid obesity. 4. Generalized debility. 5. Protein calorie malnutrition -- moderate. Albumin of 3.1. PLAN: IV antibiotics are being followed and maintained by infectious disease. The patient will continue with IV Lasix for diuresis. We will continue with Kerlix and Galo wrap on bilateral lower extremities with morphine, Silvadene over the open ulcerations, then cover with Xeroform and ABD. We advised the patient to elevate his legs as much as possible. We will attempt to maximize the patient's oral protein supplementation for healing. We will utilize physical and occupational therapy for strengthening. He will continue all other current medications. <ELECTRONICALLY SIGNED> By: Napoleon Salas MD 05/31/21 1220 1145 [id number] Napoleon Salas MD /nt
--- NOTE | 2021-05-31 15:53 | NUR ---
CARE TEAM INDICATED THAT PT NEEDS 10 MORE DAYS IV ZOSYN Q8. PT INDICATED HE DIDN'T FEEL CONFORTABLE DOING HOME INFUSION UPON DC. PT ASKED THAT REFERRAL BE SENT TO [facility] ACC[facility] PT. CARE TEAM INDICATE THAT PT MAY LIKELY BE MEDICALLY STABLE TO DC TO [facility] TOMORROW. PT IS AWARE AND AGREEABLE. CM NOTIFIED [facility]. CM FOLLOWING REGARDING DC PLANNING.
[2021-05-31 16:45] VITALS: BP 133/55
[2021-05-31] MEDS ORDERED: CEVIMELINE HCL30 MG PO (19:26)
--- NOTE | 2021-05-31 19:35 | NUR ---
Assumed pt care at 7am.Pt in and out of bed with cane and sba.Assessment completed.vss.Pt was extremely obsessed with pain patch to his back.Meds given and well tolerated.Drsg change done to bilat. lower extremities wound by wound care today.Pt ambulated in hallways with staff assist.Pt weight was reduced by 6# today.Dr Abdullahi and Jamin here,order noted.Pt will dc to rehab place in am.Report off to sadia rn.Will continue to monitor.
[2021-05-31 22:01] VITALS: BP 113/58
--- NOTE | 2021-06-01 04:02 | NUR ---
ASSUMED CARE OF AT AT SHIFT CHANGE. PT IS AOX4 AND LETS NEEDS BE KNOWN. FALL PRECAUTION IN PLACE. PT REPORTED PAIN AND PRNS PROVIDED AROUND THE CLOCK. ASSESSMENT CHARTED. NUNEZ IN PLACE AND PATIENT. DRESSINGS CHANGED PER ORDER. PT WAS ABLE TO GET COMFORTABLE AND SLEEP PART OF THE SHIFT WITH CPAP ON. VSS AND NO S/S OF ACUTE DISTRESS. WILL CONTINUE TO MONITOR FOR CHANGES.
[2021-06-01 04:46] LABS: HEMATOCRIT 30.5 % (42.0-52.0); MCHC 32.9 g/dL (28.0-37.0); MCV 82.2 fL (80.0-100.0); RBC 3.71 mil/uL (4.50-6.00); RDW 18.4 % (10.5-14.5); WBC 6.3 thou/uL (4.0-11.0)
[2021-06-01 05:46] LABS: CALCIUM 8.4 mg/dL (8.5-10.1); CREATININE 1.2 mg/dL (0.7-1.3); POTASSIUM 3.5 mmol/L (3.5-5.1)
[2021-06-01 09:30] VITALS: BP 113/58
--- NOTE | 2021-06-01 11:23 | NUR ---
PT TO DC TO [facility] THIS DAY. CM AWAITING ORDERS. THEY WILL BE FAXED ONCE COMPLETED. CHART COPY MADE. WC TRANSPORT ARRANGED FOR 1300. PT IS AWARE AND AGREEABLE. CM REGUESTED AND RECEIVED PERMISSION TO [facility] FOR PT FROM [facility] TO HIS CARE HERE ONCE FINISHED WITH SNF. CM NOTIFIED [facility] LIAISON.
[2021-06-01] MEDS ORDERED: SSD CREAM 1% 5050 GM TOP (11:33)
[2021-06-01] MEDS ORDERED: ZOSYN 3.373.375 GM/1 IV (11:34)
== END 2021-06-01 13:22 | DRG 602 ==
LOC: ER 14:33 → 4W 17:15 → EROBS 17:15 → 4W 18:30
PROVIDERS: Emergency Medicine; Hospitalist; ADMIT Internal Medicine; ATTEND Internal Medicine
PROC: 5A09557 Assistance with Respiratory Ventilation, Greater than 96 Consecutive Hours, Continuous Positive Airway Pressure (ICD-10-PCS; principal; 2021-05-26)
DX: L03.116 Cellulitis of left lower limb (principal); I50.33 Acute on chronic diastolic (congestive) heart failure; L97.929 Non-pressure chronic ulcer of unspecified part of left lower leg with unspecified severity; L97.919 Non-pressure chronic ulcer of unspecified part of right lower leg with unspecified severity; E44.0 Moderate protein-calorie malnutrition; Z16.39 Resistance to other specified antimicrobial drug; I42.9 Cardiomyopathy, unspecified; Z68.42 Body mass index [BMI] 45.0-49.9, adult; L03.115 Cellulitis of right lower limb; Z20.822 Contact with and (suspected) exposure to COVID-19; J45.909 Unspecified asthma, uncomplicated; G47.33 Obstructive sleep apnea (adult) (pediatric); K21.9 Gastro-esophageal reflux disease without esophagitis; E03.9 Hypothyroidism, unspecified; E87.70 Fluid overload, unspecified; E78.5 Hyperlipidemia, unspecified; G89.4 Chronic pain syndrome; I48.91 Unspecified atrial fibrillation; N40.0 Benign prostatic hyperplasia without lower urinary tract symptoms; E66.01 Morbid (severe) obesity due to excess calories; R53.81 Other malaise; B96.5 Pseudomonas (aeruginosa) (mallei) (pseudomallei) as the cause of diseases classified elsewhere; F32.9 Major depressive disorder, single episode, unspecified; I87.8 Other specified disorders of veins; E87.6 Hypokalemia; D64.9 Anemia, unspecified; I87.2 Venous insufficiency (chronic) (peripheral); I89.0 Lymphedema, not elsewhere classified; Z88.1 Allergy status to other antibiotic agents; Z88.8 Allergy status to other drugs, medicaments and biological substances
CPT/HCPCS: 10040

== ENCOUNTER → 2021-06-16 | Outpatient (CLI) | payer OTHER ==
[~2021-06-16] MED LIST: ALBUTEROL2.5 MG/0.1 INH; BUTALB-APAP-CA1 EACH PO; CEVIMELINE HCL30 MG PO; COLACE100 MG PO; DUTASTERIDE0.5 MG PO; FENTANYL1 EAC1 TOP; FLOMAX0.4 MG PO; FLONASE 0.05%50 MCG NARES; FUROSEMIDE 40 M40 MG PO; KLOR-CON M2020 MEQ PO; LIPITOR40 MG PO; MAG GLYCINATE100 MG PO; MINOCYCLINE HC100 M2 PO; MIRALAX119 GM PO; MULTIVITAMINS1 EAC6 PO; MYRBETRIQ25 MG PO; NEURONTIN100 MG PO; NEXIUM40 M2 PO; OXYCODONE HCL E20 MG PO; OXYCODONE HCL E30 MG PO; PACERONE200 MG PO; SPIRONOLACTONE50 MG PO; SSD CREAM 1% 5050 GM TOP; SYNTHROID50 MCG PO; VESICARE10 M1 PO; ZOFRAN ODT4 MG PO; ZOSYN 3.373.375 GM/1 IV
== END ==
LOC: HYPER 08:57
PROVIDERS: ATTEND Emergency Medicine
DX: I87.333 Chronic venous hypertension (idiopathic) with ulcer and inflammation of bilateral lower extremity (principal); L97.811 Non-pressure chronic ulcer of other part of right lower leg limited to breakdown of skin; L97.821 Non-pressure chronic ulcer of other part of left lower leg limited to breakdown of skin; B95.62 Methicillin resistant Staphylococcus aureus infection as the cause of diseases classified elsewhere; I89.0 Lymphedema, not elsewhere classified; R60.0 Localized edema; L30.9 Dermatitis, unspecified; R21 Rash and other nonspecific skin eruption; E66.01 Morbid (severe) obesity due to excess calories; N40.0 Benign prostatic hyperplasia without lower urinary tract symptoms; I11.0 Hypertensive heart disease with heart failure; I50.32 Chronic diastolic (congestive) heart failure; I48.0 Paroxysmal atrial fibrillation; J45.20 Mild intermittent asthma, uncomplicated; G47.33 Obstructive sleep apnea (adult) (pediatric); K76.6 Portal hypertension; K21.9 Gastro-esophageal reflux disease without esophagitis; M17.0 Bilateral primary osteoarthritis of knee; Z68.42 Body mass index [BMI] 45.0-49.9, adult; Z98.84 Bariatric surgery status; Z90.49 Acquired absence of other specified parts of digestive tract; Z95.818 Presence of other cardiac implants and grafts

== ENCOUNTER → 2021-07-07 | Outpatient (CLI) | payer OTHER | LOC: HYPER 08:29 | PROVIDERS: ATTEND Emergency Medicine | DX: I87.333 Chronic venous hypertension (idiopathic) with ulcer and inflammation of bilateral lower extremity (principal); L97.811 Non-pressure chronic ulcer of other part of right lower leg limited to breakdown of skin; L97.821 Non-pressure chronic ulcer of other part of left lower leg limited to breakdown of skin; I89.0 Lymphedema, not elsewhere classified; R60.0 Localized edema; L30.9 Dermatitis, unspecified; R21 Rash and other nonspecific skin eruption; N40.0 Benign prostatic hyperplasia without lower urinary tract symptoms; I48.0 Paroxysmal atrial fibrillation; J45.20 Mild intermittent asthma, uncomplicated; I11.0 Hypertensive heart disease with heart failure; I50.32 Chronic diastolic (congestive) heart failure; M17.0 Bilateral primary osteoarthritis of knee; G47.33 Obstructive sleep apnea (adult) (pediatric); E66.9 Obesity, unspecified; Z86.14 Personal history of Methicillin resistant Staphylococcus aureus infection; Z98.890 Other specified postprocedural states; Z79.899 Other long term (current) drug therapy ==

== ENCOUNTER → 2021-07-27 | Outpatient (CLI) | payer OTHER | LOC: HYPER 12:42 | PROVIDERS: ATTEND Emergency Medicine | DX: I87.333 Chronic venous hypertension (idiopathic) with ulcer and inflammation of bilateral lower extremity (principal); L97.812 Non-pressure chronic ulcer of other part of right lower leg with fat layer exposed; L97.821 Non-pressure chronic ulcer of other part of left lower leg limited to breakdown of skin; L30.9 Dermatitis, unspecified; R21 Rash and other nonspecific skin eruption; I89.0 Lymphedema, not elsewhere classified; R60.0 Localized edema; E66.01 Morbid (severe) obesity due to excess calories; G47.33 Obstructive sleep apnea (adult) (pediatric); N40.0 Benign prostatic hyperplasia without lower urinary tract symptoms; I48.0 Paroxysmal atrial fibrillation; I11.0 Hypertensive heart disease with heart failure; I50.32 Chronic diastolic (congestive) heart failure; J45.20 Mild intermittent asthma, uncomplicated; M17.0 Bilateral primary osteoarthritis of knee; K21.9 Gastro-esophageal reflux disease without esophagitis; Z86.14 Personal history of Methicillin resistant Staphylococcus aureus infection; Z68.42 Body mass index [BMI] 45.0-49.9, adult ==

== ENCOUNTER → 2021-08-10 | Outpatient (CLI) | payer OTHER | LOC: HYPER 08:26 | PROVIDERS: ATTEND Emergency Medicine | DX: I87.333 Chronic venous hypertension (idiopathic) with ulcer and inflammation of bilateral lower extremity (principal); L97.822 Non-pressure chronic ulcer of other part of left lower leg with fat layer exposed; L97.812 Non-pressure chronic ulcer of other part of right lower leg with fat layer exposed; S51.811A Laceration without foreign body of right forearm, initial encounter; L30.9 Dermatitis, unspecified; R21 Rash and other nonspecific skin eruption; I89.0 Lymphedema, not elsewhere classified; R60.0 Localized edema; E66.01 Morbid (severe) obesity due to excess calories; G47.33 Obstructive sleep apnea (adult) (pediatric); N40.0 Benign prostatic hyperplasia without lower urinary tract symptoms; I48.0 Paroxysmal atrial fibrillation; I11.0 Hypertensive heart disease with heart failure; I50.32 Chronic diastolic (congestive) heart failure; J45.20 Mild intermittent asthma, uncomplicated; K21.9 Gastro-esophageal reflux disease without esophagitis; M17.0 Bilateral primary osteoarthritis of knee; Z86.14 Personal history of Methicillin resistant Staphylococcus aureus infection; Z68.42 Body mass index [BMI] 45.0-49.9, adult; X58.XXXA Exposure to other specified factors, initial encounter; Y93.89 Activity, other specified; Y92.89 Other specified places as the place of occurrence of the external cause; Y99.8 Other external cause status ==

== ENCOUNTER → 2021-08-24 | Outpatient (CLI) | payer OTHER | LOC: HYPER 12:04 | PROVIDERS: ATTEND Emergency Medicine | DX: I87.333 Chronic venous hypertension (idiopathic) with ulcer and inflammation of bilateral lower extremity (principal); L97.812 Non-pressure chronic ulcer of other part of right lower leg with fat layer exposed; L97.822 Non-pressure chronic ulcer of other part of left lower leg with fat layer exposed; R60.0 Localized edema; L30.9 Dermatitis, unspecified; R21 Rash and other nonspecific skin eruption; I89.0 Lymphedema, not elsewhere classified; N40.0 Benign prostatic hyperplasia without lower urinary tract symptoms; I48.0 Paroxysmal atrial fibrillation; J45.20 Mild intermittent asthma, uncomplicated; I11.0 Hypertensive heart disease with heart failure; I50.32 Chronic diastolic (congestive) heart failure; G47.33 Obstructive sleep apnea (adult) (pediatric); M17.0 Bilateral primary osteoarthritis of knee; E66.9 Obesity, unspecified; Z68.42 Body mass index [BMI] 45.0-49.9, adult; Z86.14 Personal history of Methicillin resistant Staphylococcus aureus infection; Z98.890 Other specified postprocedural states; Z79.899 Other long term (current) drug therapy ==

== ENCOUNTER → 2021-09-12 | Outpatient (CLI) | payer OTHER | LOC: HYPER 13:17 | PROVIDERS: ATTEND Emergency Medicine | DX: I87.333 Chronic venous hypertension (idiopathic) with ulcer and inflammation of bilateral lower extremity (principal); L97.812 Non-pressure chronic ulcer of other part of right lower leg with fat layer exposed; L97.822 Non-pressure chronic ulcer of other part of left lower leg with fat layer exposed; L30.9 Dermatitis, unspecified; R60.0 Localized edema; R21 Rash and other nonspecific skin eruption; E66.01 Morbid (severe) obesity due to excess calories; I89.0 Lymphedema, not elsewhere classified; N40.0 Benign prostatic hyperplasia without lower urinary tract symptoms; I48.0 Paroxysmal atrial fibrillation; J45.20 Mild intermittent asthma, uncomplicated; I50.32 Chronic diastolic (congestive) heart failure; G47.33 Obstructive sleep apnea (adult) (pediatric); M17.0 Bilateral primary osteoarthritis of knee; Z68.42 Body mass index [BMI] 45.0-49.9, adult; Z86.14 Personal history of Methicillin resistant Staphylococcus aureus infection ==

== ENCOUNTER → 2021-09-28 | Outpatient (CLI) | payer OTHER | LOC: HYPER 12:54 | PROVIDERS: ATTEND Emergency Medicine | DX: I87.333 Chronic venous hypertension (idiopathic) with ulcer and inflammation of bilateral lower extremity (principal); L97.822 Non-pressure chronic ulcer of other part of left lower leg with fat layer exposed; L97.812 Non-pressure chronic ulcer of other part of right lower leg with fat layer exposed; N40.0 Benign prostatic hyperplasia without lower urinary tract symptoms; I48.0 Paroxysmal atrial fibrillation; J45.20 Mild intermittent asthma, uncomplicated; I11.0 Hypertensive heart disease with heart failure; I50.32 Chronic diastolic (congestive) heart failure; M17.0 Bilateral primary osteoarthritis of knee; G47.33 Obstructive sleep apnea (adult) (pediatric); Z86.14 Personal history of Methicillin resistant Staphylococcus aureus infection; Z79.899 Other long term (current) drug therapy ==

== ENCOUNTER → 2021-10-19 | Outpatient (CLI) | payer OTHER | LOC: HYPER 09:25 | PROVIDERS: ATTEND Emergency Medicine | DX: I87.333 Chronic venous hypertension (idiopathic) with ulcer and inflammation of bilateral lower extremity (principal); L97.822 Non-pressure chronic ulcer of other part of left lower leg with fat layer exposed; L97.812 Non-pressure chronic ulcer of other part of right lower leg with fat layer exposed; L30.9 Dermatitis, unspecified; N40.0 Benign prostatic hyperplasia without lower urinary tract symptoms; R60.0 Localized edema; E66.9 Obesity, unspecified; R21 Rash and other nonspecific skin eruption; I48.0 Paroxysmal atrial fibrillation; J45.20 Mild intermittent asthma, uncomplicated; I11.0 Hypertensive heart disease with heart failure; I50.32 Chronic diastolic (congestive) heart failure; G47.33 Obstructive sleep apnea (adult) (pediatric); K21.9 Gastro-esophageal reflux disease without esophagitis; M17.0 Bilateral primary osteoarthritis of knee; Z86.14 Personal history of Methicillin resistant Staphylococcus aureus infection; Z95.818 Presence of other cardiac implants and grafts; Z68.42 Body mass index [BMI] 45.0-49.9, adult ==

== ENCOUNTER → 2021-11-09 | Outpatient (CLI) | payer OTHER | LOC: HYPER 12:51 | PROVIDERS: ATTEND Emergency Medicine | DX: I87.333 Chronic venous hypertension (idiopathic) with ulcer and inflammation of bilateral lower extremity (principal); L97.822 Non-pressure chronic ulcer of other part of left lower leg with fat layer exposed; L97.812 Non-pressure chronic ulcer of other part of right lower leg with fat layer exposed; I89.0 Lymphedema, not elsewhere classified; R60.0 Localized edema; L30.9 Dermatitis, unspecified; R21 Rash and other nonspecific skin eruption; B95.62 Methicillin resistant Staphylococcus aureus infection as the cause of diseases classified elsewhere; N40.0 Benign prostatic hyperplasia without lower urinary tract symptoms; I48.0 Paroxysmal atrial fibrillation; J45.20 Mild intermittent asthma, uncomplicated; I11.0 Hypertensive heart disease with heart failure; I50.32 Chronic diastolic (congestive) heart failure; G47.33 Obstructive sleep apnea (adult) (pediatric); M17.0 Bilateral primary osteoarthritis of knee; E66.9 Obesity, unspecified; Z68.42 Body mass index [BMI] 45.0-49.9, adult; Z86.14 Personal history of Methicillin resistant Staphylococcus aureus infection; Z98.890 Other specified postprocedural states; Z79.899 Other long term (current) drug therapy ==

== ENCOUNTER → 2021-12-07 | Outpatient (CLI) | payer OTHER | LOC: HYPER 12:51 | PROVIDERS: ATTEND Emergency Medicine | DX: I87.333 Chronic venous hypertension (idiopathic) with ulcer and inflammation of bilateral lower extremity (principal); L97.822 Non-pressure chronic ulcer of other part of left lower leg with fat layer exposed; L97.812 Non-pressure chronic ulcer of other part of right lower leg with fat layer exposed; I89.0 Lymphedema, not elsewhere classified; R60.0 Localized edema; L30.9 Dermatitis, unspecified; R21 Rash and other nonspecific skin eruption; B95.62 Methicillin resistant Staphylococcus aureus infection as the cause of diseases classified elsewhere; E66.01 Morbid (severe) obesity due to excess calories; N40.0 Benign prostatic hyperplasia without lower urinary tract symptoms; I48.0 Paroxysmal atrial fibrillation; J45.20 Mild intermittent asthma, uncomplicated; I11.0 Hypertensive heart disease with heart failure; I50.32 Chronic diastolic (congestive) heart failure; G47.33 Obstructive sleep apnea (adult) (pediatric); M17.0 Bilateral primary osteoarthritis of knee; K21.9 Gastro-esophageal reflux disease without esophagitis; Z68.42 Body mass index [BMI] 45.0-49.9, adult; Z86.14 Personal history of Methicillin resistant Staphylococcus aureus infection ==